=== PATIENT | male | born 1990 | race Caucasian/White ===

== ENCOUNTER 2016-05-01 11:11 | Emergency (ER) | payer MEDICAID ==
[2016-05-01 11:28] VITALS: BP 134/85; PULSE 108; RESP 18; TEMP 98.8; O2SAT 95
--- NOTE | 2016-05-01 11:58 | EDPHY ---
H & P Smoking Status: Never smoked Time Seen by Provider: 05/01/16 11:16 HPI/ROS: CHIEF COMPLAINT: left ankle pain HISTORY OF PRESENT ILLNESS: This otherwise healthy 25-year-old male, presents to the emergency department after an inversion ankle injury. The patient complains of pain to the lateral ankle and swelling. The patient has no other complaints, denies numbness or tingling to affected limb. (Natasha Tobias) Physical Exam: General appearance: alert no distress Left ankle: There is moderate swelling and tenderness over the lateral ankle. TTP to ATFL and CFL. There is no tenderness over the achilles tendon. The foot is non-tender without swelling. No TTP over 5th metatarsal. Neurologic exam: The patient has normal sensation and motor function distal to the injury. Vascular exam: Normal pulses and capillary refill in the foot (Natasha Tobias) Constitutional: Initial Vital Signs Temperature (C) 37.1 C 05/01/16 11:15 Heart Rate 108 H 05/01/16 11:15 Respiratory Rate 18 05/01/16 11:15 Blood Pressure 134/85 H 05/01/16 11:15 O2 Sat (%) 95 05/01/16 11:15 O2 Delivery Mode Room Air Allergies/Adverse Reactions: No Known Allergies Allergy (Unverified 05/01/16 11:25) Home Medications: Medication Instructions Recorded Hydrocodone/APAP 5/325 [[place] 1 tab PO Q4H PRN #14 tab 05/01/16 5/325] MDM/Departure - MDM Diagnostics: Ankle x-ray independently reviewed by me- Impression: Acute minimally displaced distal fibular fracture. Dictated By: Alex Cancino MD (Natasha Tobias) ED Course/Re-evaluation: I did not see this patient while he was in the emergency. His care was discussed with the nurse practitioner while patient was in the department. Agree with treatment plan and management (Usman Nagy) - Depart Disposition: Home, Routine, Self-Care Clinical Impression: Fracture of fibula, distal, left, closed Condition: Good Instructions: Ankle Fracture (ED) Additional Instructions: Rest, ice, elevate, take 600mg of ibuprofen every 8 hours with food for 3-5 days as needed for pain and swelling. Take [place] for severe pain. Return to the emergency department for any numbness, tingling, discoloration of you limb or other concerns. Keep walking boot in place, use crutches, do not weight bear until you follow up with orthopedist. Follow up with orthopedist at 1st available appointment, call Monday to schedule this appointment. Prescriptions: Hydrocodone/APAP 325 [[place] 5/325] 1 tab PO Q4H PRN #14 tab PRN Reason: Pain, Moderate Referrals: Alex Kaye MD [Medical Doctor] - As per Instructions (Orthopedist on-call)
== END 2016-05-01 12:35 | disposition home or self-care (01) ==
DX: S82.832A Other fracture of upper and lower end of left fibula, initial encounter for closed fracture (principal); X58.XXXA Exposure to other specified factors, initial encounter
CPT/HCPCS: L4386

== ENCOUNTER 2016-05-06 07:02 | Day surgery (SDC) | payer MEDICAID ==
[2016-05-06] MEDS ORDERED: LIDOCAINE 1% 2 ML INJ ONE (07:11)
[2016-05-06] MEDS ORDERED: BUPIVACAINE 0.5% 30 ML SDV ONE (07:24)
[2016-05-06] MEDS ORDERED: fentaNYL 250 MCG/5 ML INJ ONE (07:30)
[2016-05-06] MEDS ORDERED: LIDOCAINE 1% 5 ML SDV ID PRN (07:32)
[2016-05-06] MEDS ORDERED: LR 1,000 ML IV ONE (07:32)
[2016-05-06] MEDS ORDERED: MIDAZOLAM 2 MG/2 ML VIAL ONE ×2 (07:33)
[2016-05-06] MEDS ORDERED: PROPOFOL/EMULSION 500 MG/50 ML BOTTLE IV ONE (07:33)
[2016-05-06] MEDS ORDERED: FAMOTIDINE 20 MG/2 ML SDV ONE (07:58)
[2016-05-06] MEDS ORDERED: ceFAZolin 2 GM/DEXTROSE 100 ML IV ONE (08:00)
[2016-05-06] MEDS ORDERED: ROCURONIUM 50 MG/5 ML VIAL ONE (11:25)
[2016-05-06] MEDS ORDERED: SUCCINYLCHOLINE CHLORIDE*ANESTHESIA ONLY*200 MG/10 ML SYR IVP ONE (11:26)
[2016-05-06] MEDS ORDERED: ONDANSETRON 4 MG/2 ML VIAL ONE (11:26)
[2016-05-06] MEDS ORDERED: DEXAMETHASONE 4 MG/ML VIAL ONE ×2 (11:26)
--- NOTE | 2016-05-06 11:52 | GOP ---
[f rep st] OPERATIVE REPORT DATE OF OPERATION: 05/06/2016 SURGEON: Alex Kaye MD ANESTHESIA: General plus popliteal block performed by the anesthesiologist at my request for postop erative pain management. PREOPERATIVE DIAGNOSIS: Left lateral malleolus fracture. POSTOPERATIVE DIAGNOSIS: Left lateral malleolus fracture. PROCEDURE PERFORMED: 1. Open reduction, internal fixation, left lateral malleolus fracture. 2. Intraoperative use of fluoroscopy. FINDINGS: ESTIMATED BLOOD LOSS: Minimal. INDICATIONS: Patient is a 25-year-old, who sustained a fall less than 1 week ago. He noted ankle pa in. Clinically and radiographically, he was noted to have a dynamically unstable lateral malleolus f racture. Based on the nature of his injury, it was recommended that operative treatment consisting o f open reduction, internal fixation be pursued. The patient acknowledged he understood the potential risks of the operation including but not limited to, bleeding, infection, neurovascular damage, los s of limb function, malunion, nonunion, need for hardware removal, pain or functional limitations de spite operative treatment, and anesthetic risks. He acknowledged he understood the potential risks, planned procedure, and postoperative plan well, and had all questions answered prior to surgery. He gave his consent for the operative procedure. DESCRIPTION OF PROCEDURE: The patient was brought into the operating room after IV antibiotics were administered. Popliteal block was performed by the anesthesiologist at my request for postoperative pain management in preop holding. He was placed in a supine position on the operative table where g eneral anesthetic was administered. A tourniquet was placed on his left calf, and the patient was tr ansferred to a right lateral decubitus position to the operating table with beanbag support, axillar y roll, and padding of all bony prominences. The left lower leg was prepped and draped in standard s terile fashion. After marking the incision and Zaki wrap exsanguination, the tourniquet was inflated to 250. A longitudinal incision was made along the posterior border of the distal fibula. Skin and subcutane ous tissue were sharply incised. Sharp dissection was carried anterior to the peroneal tendons, expo sing the posterior lateral aspect of the distal fibula. Interpose fibrous tissue at the fracture sit e was carefully cleaned with a fine tip curette. Based on the nature of the fracture, a posterior "a ntiglide" plating was performed. A 6 hole 1/3 tubular plate was placed along the posterior border of the fibula. Just proximal to the plane of the fracture, a 3.5 mm bicortical screw was placed throug h the plate in a posterior to anterior direction. As the screw was tightened, the fracture reduction was anatomically reduced with a dental pick and a 2 point reduction clamp. With the fracture held i n an anatomically reduced position, a 2.7 mm cortical screw was placed in lag fashion through the 2n d most distal hole in the plate. An additional 3.5 mm bicortical screw was placed in the most proxim al hole and a 2.7 mm unicortical screw was placed in the most distal hole to aid in stability of the distal fragment. Fluoroscopic views confirmed anatomic reduction and optimal hardware placement. Attention was directed towards closure. The fascial layer overlying the peroneal tendons was closed with 2-0 Vicryl suture in interrupted fashion. Subcutaneous tissue was closed with 3-0 Vicryl suture in interrupted fashion. Skin was closed with skin fidelina. The wounds were dressed with sterile Ada ptic, 4 x 4, and [place], and the leg was placed in a below-knee splint. Patient tolerated the proced ure well and was taken to the recovery room extubated, in stable condition postoperatively. All spon ge, needle, and instrument counts were reported as being correct. DRAINS: None. COMPLICATIONS: None. PLAN: Patient will be discharged home, nonweightbearing on his operative extremity. /[id number]/MODL
== END 2016-05-06 10:35 | disposition home or self-care (01) ==
LOC: FSGY 07:02
PROVIDERS: ATTEND Orthopaedic Surgery Foot and Ankle Surgery
PROC: 0QSK04Z Reposition Left Fibula with Internal Fixation Device, Open Approach (ICD-10-PCS; principal; 2016-05-06 08:15)
DX: S82.62XA Displaced fracture of lateral malleolus of left fibula, initial encounter for closed fracture (principal); W19.XXXA Unspecified fall, initial encounter
CPT/HCPCS: C1713; J0330; J0690; J1100; J2250; J2405; J2704; J3010